=== PATIENT | female | born 1990 | race Caucasian/White ===

== ENCOUNTER 2017-11-03 09:47 | Emergency (ER) | payer OTHER ==
[2017-11-03 11:03] LABS: INFLUENZA A PATIENT NEGATIVE (NEGATIVE); INFLUENZA B PATIENT NEGATIVE (NEGATIVE)
[2017-11-03 11:04] LABS: OBC FLU VALID
[2017-11-03 11:36] LABS: NEGATIVE OBC STREP NEG; POSITIVE OBC STREP POS
== END 2017-11-03 11:11 | disposition home or self-care (01) ==
LOC: ER 09:47
DX: J02.9 Acute pharyngitis, unspecified (principal); R05 Cough; J34.89 Other specified disorders of nose and nasal sinuses
CPT/HCPCS: 87070; 87804; 87804-59; 87880; 99284